=== PATIENT | male | born 1995 | race Caucasian/White ===

== ENCOUNTER 2020-09-18 12:20 | Emergency (ER) | payer MEDICAID ==
[~2020-09-18] VITALS: Ht 175.3 cm; Wt 79.0 kg
[2020-09-18] MEDS ORDERED: HYDROCODONE/ACETAMINOPHEN 5/325MG TABLET PO ONE (13:00)
[2020-09-18 15:35] VITALS: BP 117/72
[2020-09-18] MEDS ORDERED: HYDR-4346 MT (16:53)
[2020-09-18] MEDS ORDERED: IBUP-2029 MT (16:53)
== END 2020-09-18 17:13 | disposition home or self-care (01) ==
LOC: ER 12:30
DX: S82.142A Displaced bicondylar fracture of left tibia, initial encounter for closed fracture (principal); M25.462 Effusion, left knee; W11.XXXA Fall on and from ladder, initial encounter; Y93.89 Activity, other specified; Y92.018 Other place in single-family (private) house as the place of occurrence of the external cause
CPT/HCPCS: 29505; 73700; 99284